=== PATIENT | female | born 1990 | race Caucasian/White ===

== ENCOUNTER 2016-05-23 13:36 | Emergency (ER) | payer OTHER ==
[~2016-05-23] VITALS: Wt 45.5 kg
[2016-05-23 14:21] LABS: ADD SCAN DIFF NO
[2016-05-23 14:24] LABS: ADD UMIC YES; URINE BILIRUBIN (Dip) NEGATIVE (NEGATIVE); URINE BLOOD (Dip) TRACE (NEGATIVE); URINE COLOR LT. YELLOW (YELLOW); URINE GLUCOSE (Dip) NEGATIVE (NEGATIVE); URINE KETONES (Dip) NEGATIVE (NEGATIVE); URINE LEUKOCYTE ESTERASE (Dip) NEGATIVE (NEGATIVE); URINE NITRITE (Dip) NEGATIVE (NEGATIVE); URINE TOTAL PROTEIN (Dip) NEGATIVE (NEGATIVE); URINE UROBILINOGEN (Dip) 0.2 E.U./dL (0.1-1.0)
--- NOTE | 2016-05-23 14:43 | RADRPT ---
PROCEDURE: US Pelvis. CLINICAL INDICATION: vaginal bleeding TECHNIQUE: Multiple sonographic images of the pelvis were obtained utilizing a transabdominal tech nique. The images were reviewed on a PACS workstation. COMPARISON: None. FINDINGS: The uterus is normal in size and demonstrates a normal appearance of the myometrium. The endometria l stripe is homogeneous in appearance and has the thickness of 5 mm. No intrauterine gestation is noted. The ovaries are normal in size and echogenicity. Normal Doppler flow is identified in both ovaries. The right ovary measures 4.0 x 3.0 x 2.4 cm. There is a 1.9 cm simple cyst in the right ovary. The left ovary measures 3.3 x 2.1 x 2.0 cm. No free fluid is present within the pelvis.. RPTAT: AA IMPRESSION: No intrauterine gestation visualized. Small simple cyst in the right ovary. Differential diagnosis includes early , missed or ectopic . Follow-up ultrasound and HCG levels is recommended. .Rick Bernal MD, MD Date Time Electronically viewed and signed by .Rick Bernal MD, MD on 05/23/2016 14:43 .S/
[2016-05-23 14:55] LABS: SQUAMOUS EPITHELIAL CELL,UR FEW; URINE RBCS 0-2 /HPF (0)
[2016-05-23 15:35] LABS: BASOPHILS % 0.3 % (0.0-2.0); EOSINOPHILS % 0.5 % (0.0-7.0); HEMOGLOBIN 9.7 g/dl (12.0-16.0); LYMPHOCYTES # 1.6 10^3/ul (0.8-2.9); LYMPHOCYTES % 26.9 % (15.0-51.0); MEAN CORPUSCULAR HEMOGLOBIN 23.1 pg (29.0-33.0); MEAN CORPUSCULAR HGB CONC 30.3 g/dl (32.0-37.0); MEAN CORPUSCULAR VOLUME 76.2 fl (82.0-101.0); MEAN PLATELET VOLUME 11.1 fl (7.4-10.4); MONOCYTE # 0.7 10^3/ul (0.3-0.9); NEUTROPHIL # 3.5 10^3/ul (1.6-7.5); NEUTROPHILS % 60.1 % (39.0-77.0); PLATELET COUNT 248 10^3/UL (140-415); RED CELL DISTRIBUTION WIDTH 16.5 % (11.5-14.5); WHITE BLOOD COUNT 5.8 10^3/ul (4.8-10.8)
[2016-05-23] MEDS ORDERED: FER325 PO (15:43)
--- NOTE | 2016-05-23 16:02 | ERD ---
ER Documentation Chief Complaint Date/Time DATE: 05/23/16 TIME: 15:47 Chief Complaint "I think I had a miscarriage", brought possible poc HPI This is a 25-year-old female who presents the emergency for a vaginal bleed and possible miscarriage. Patient is with on all deliveries. Last menstrual period was on April 08. Patient states that she noticed blood when wiping herself upon urination. She used a tampon yesterday and when she took it out this morning, a vaginal tissue came out with it. Denies any recent history of fever, abdominal pain, nausea, vomiting, diarrhea or dysuria. Patient does not take any medications. Denies smoking or alcohol use. ROS All systems reviewed and are negative except as per history of present illness. Medications Home Meds Active Scripts Ferrous Sulfate* (Ferrous Sulfate*) 325 Mg Tabec, 325 MG PO DAILY for 30 Days, TAB Prov:FROREST MUNOZ 05/23/16 PMhx/Soc Medical and Surgical Hx: pt denies Medical Hx, pt denies Surgical Hx Hx Alcohol Use: No Hx Substance Use: No Smoking Status: Never smoker Physical Exam Vitals Vital Signs Date Time Temp Pulse Resp B/P Pulse Ox O2 Delivery O2 Flow Rate FiO2 05/23/16 13:38 99.5 114 20 129/73 100 Physical Exam Physical Exam CONST: Well-developed, well-nourished, in no acute distress. Nontoxic in appearance. HEENT: Atraumatic. Normal conjunctiva. EOM intact. TM intact. External ear is normal. Clear oropharnyx without erythema. No uvular deviation. Moist mucous membranes. Supple neck. No meningismus. No submandibular induration. RESP: Clear to auscultation bilaterally. No wheezing. CARDIO: Regular rate and rhythm, no murmurs. ABD: Soft, non tender, non distended. Normal bowel sounds. No McBurney's point tenderness. No guarding or rigidity. No peritoneal signs. SKIN: No petechiae or rashes. BACK: No midline or flank tenderness. EXT: No cyanosis or edema. Distal pulses equal and bilateral. NEURO: Awake and alert, appropriate for age. 5/5 strength in all extremities. Normal speech. Steady gait. Result Diagram: 05/23/16 1409 Results 24 hrs Laboratory Tests Test 05/23/16 14:09 White Blood Count 5.810^3/ul Red Blood Count 4.2010^6/ul Hemoglobin 9.7g/dl Hematocrit 32.0% Mean Corpuscular Volume 76.2fl Mean Corpuscular Hemoglobin 23.1pg Mean Corpuscular Hemoglobin Concent 30.3g/dl Red Cell Distribution Width 16.5% Platelet Count 02278^3/UL Mean Platelet Volume 11.1fl Neutrophils % 60.1% Lymphocytes % 26.9% Monocytes % 12.0% Eosinophils % 0.5% Basophils % 0.3% Nucleated Red Blood Cells % 0.0/100WBC Neutrophils # 3.510^3/ul Lymphocytes # 1.610^3/ul Monocytes # 0.710^3/ul Eosinophils # 0.010^3/ul Basophils # 0.010^3/ul Nucleated Red Blood Cells # 0.010^3/ul Urine Color LT. YELLOW Urine Clarity CLEAR Urine pH 5.5 Urine Specific [place] >=1.030 Urine Ketones NEGATIVE Urine Nitrite NEGATIVE Urine Bilirubin NEGATIVE Urine Urobilinogen 0.2 E.U./dL Urine Leukocyte Esterase NEGATIVE Urine Microscopic RBC 0-2/HPF Urine Microscopic WBC 0-2/HPF Urine Squamous Epithelial Cells FEW Urine Hemoglobin TRACE Urine Glucose NEGATIVE% Urine Total Protein NEGATIVE Beta HCG, Quantitative 222.7mIU/ml PROCEDURE: US Pelvis. CLINICAL INDICATION: vaginal bleeding TECHNIQUE: Multiple sonographic images of the pelvis were obtained utilizing a transabdominal technique. The images were reviewed on a PACS workstation. COMPARISON: None. FINDINGS: The uterus is normal in size and demonstrates a normal appearance of the myometrium. The endometrial stripe is homogeneous in appearance and has the thickness of 5 mm. No intrauterine gestation is noted. The ovaries are normal in size and echogenicity. Normal Doppler flow is identified in both ovaries. The right ovary measures 4.0 x 3.0 x 2.4 cm. There is a 1.9 cm simple cyst in the right ovary. The left ovary measures 3.3 x 2.1 x 2.0 cm. No free fluid is present within the pelvis.. RPTAT: AA IMPRESSION: No intrauterine gestation visualized. Small simple cyst in the right ovary. Differential diagnosis includes early , missed or ectopic . Follow-up ultrasound and HCG levels is recommended. .Rick Bernal MD, MD Date Time Electronically viewed and signed by .Rick Bernal MD, on 05/23/2016 14: 43 Procedures/MDM EMERGENCY DEPARTMENT COURSE/MEDICAL DECISION MAKING This is a 25-year-old female who comes to the emergency room secondary to complaints of vaginal bleeding and possible spontaneous . Patient asymptomatic throughout the ED course. Vital signs are stable. OB ultrasound was done and was interpreted by a radiologist. There is no intrauterine gestation visualized. Beta hCG is 222.7, there is no baseline level and patient needs to come back in 2 days for a repeat blood draw. H&H is 9.7 and 32, I will prescribe 30 day course of ferrous sulfate for microcytic anemia. Patient also brought the tissue sample and was sent for biopsy. My primary diagnosis is vaginal bleeding. Secondary diagnosis is spontaneous Differential diagnoses considered but not limited to acute appendicitis, diverticulitis, pancreatitis, cholecystitis, gastritis, pyelonephritis, UTI, constipation, inflammatory bowel disease, ectopic , ovarian torsion. Pt is hemodynamically stable upon reassessment. There are no new complaints during the ED course. The patient was discharged for outpatient management with a prescription for ferrous sulfate. Patient was instructed to return to ED in 2 days for a repeat beta hCG lab draw. The patient was advised to followup with their PMD in 1-2 days and to return to the Emergency Department if there are any new or worsening symptoms. The patient understood and agreed with the diagnosis, treatment and plan. Patient is stable for discharge at this time. Departure Diagnosis: Primary Impression: Vaginal bleeding Condition: Stable Patient Instructions: Vaginal Bleed in Referrals: [facility] YOU HAVE RECEIVED A MEDICAL SCREENING EXAM AND THE RESULTS INDICATE THAT YOU DO NOT HAVE A CONDITION THAT REQUIRES URGENT TREATMENT IN THE EMERGENCY DEPARTMENT. FURTHER EVALUATION AND TREATMENT OF YOUR CONDITION CAN WAIT UNTIL YOU ARE SEEN IN YOUR DOCTORS OFFICE WITHIN THE NEXT 1-2 DAYS. IT IS YOUR RESPONSIBILITY TO MAKE AN APPOINTMENT FOR FOLOW-UP CARE. IF YOU HAVE A PRIMARY DOCTOR --you should call your primary doctor and schedule an appointment IF YOU DO NOT HAVE A PRIMARY DOCTOR YOU CAN CALL OUR PHYSICIAN REFERRAL HOTLINE AT IF YOU CAN NOT AFFORD TO SEE A PHYSICIAN YOU CAN CHOSE FROM THE FOLLOWING [facility] [address] [facility] [address] [facility] [address] [facility] [address] [facility] [address] [facility]. [facility]. [address] [facility]. [facility] YOU HAVE RECEIVED A MEDICAL SCREENING EXAM AND THE RESULTS INDICATE THAT YOU DO NOT HAVE A CONDITION THAT REQUIRES URGENT TREATMENT IN THE EMERGENCY DEPARTMENT. FURTHER EVALUATION AND TREATMENT OF YOUR CONDITION CAN WAIT UNTIL YOU ARE SEEN IN YOUR DOCTORS OFFICE WITHIN THE NEXT 1-2 DAYS. IT IS YOUR RESPONSIBILITY TO MAKE AN APPOINTMENT FOR FOLOW-UP CARE. IF YOU HAVE A PRIMARY DOCTOR --you should call your primary doctor and schedule and appointment IF YOU DO NOT HAVE A PRIMARY DOCTOR YOU CAN CALL OUR PHYSICIAN REFERRAL HOTLINE AT . IF YOU CAN NOT AFFORD TO SEE A PHYSICIAN YOU CAN CHOSE FROM THE FOLLOWING [facility] INSTITUTIONS: [facility] [address] [place] [address] [facility] [address] [place] [address] [facility] [address] [place] [address] Additional Instructions: Return to ED in 2 days for a Beta HCG blood draw Call your primary care doctor tomorrow for an appointment during the next 1-2 days. Return to the emergency department immediately should you have any new or worsening symptoms. Take all medications as directed. FORREST MUNOZ May 23, 2016 16:02
[2016-05-23 16:04] VITALS: BP 124/76; PULSE 92; RESP 18; TEMP 99.1
== END 2016-05-23 16:05 | disposition home or self-care (01) ==
LOC: FTE 13:36
DX: N93.9 Abnormal uterine and vaginal bleeding, unspecified (principal)
CPT/HCPCS: 36415; 76801; 81001; 81003; 84702; 85025; 86900; 86901; 88305

== ENCOUNTER 2016-05-25 14:06 | Emergency (ER) | payer OTHER ==
[~2016-05-25] VITALS: Wt 47.0 kg
[~2016-05-25 14:06] MED LIST: FER325 PO
[2016-05-25 15:27] LABS: ADD SCAN DIFF NO
[2016-05-25 15:36] LABS: BASOPHILS % 0.2 % (0.0-2.0); EOSINOPHILS % 0.7 % (0.0-7.0); HEMATOCRIT 33.1 % (37.0-47.0); HEMOGLOBIN 9.8 g/dl (12.0-16.0); LYMPHOCYTES # 1.5 10^3/ul (0.8-2.9); LYMPHOCYTES % 32.9 % (15.0-51.0); MEAN CORPUSCULAR HEMOGLOBIN 22.9 pg (29.0-33.0); MEAN CORPUSCULAR HGB CONC 29.6 g/dl (32.0-37.0); MEAN CORPUSCULAR VOLUME 77.3 fl (82.0-101.0); MEAN PLATELET VOLUME 10.4 fl (7.4-10.4); MONOCYTE # 0.6 10^3/ul (0.3-0.9); MONOCYTES % 13.1 % (0.0-11.0); NEUTROPHIL # 2.4 10^3/ul (1.6-7.5); NEUTROPHILS % 52.9 % (39.0-77.0); PLATELET COUNT 220 10^3/UL (140-415); RED BLOOD COUNT 4.28 10^6/ul (4.20-5.40); RED CELL DISTRIBUTION WIDTH 16.8 % (11.5-14.5); WHITE BLOOD COUNT 4.4 10^3/ul (4.8-10.8)
--- NOTE | 2016-05-25 16:16 | ERD ---
ER Documentation Chief Complaint Date/Time DATE: 05/25/16 TIME: 16:09 Chief Complaint HERE FOR 2 DAY RECHECK OF B HCG FOR VAG BLEED POSSIBLE MISCARRIAGE. HPI Is a 25-year-old female who presents to the emergency department today for a recheck of her hormone level. Patient was seen here a couple of days ago and was also told that her iron was low. States she has been taking her iron. States she does have some continued bleeding. States she has an appointment with her clinic next week. Denies any fevers or chills, dysuria, abdominal pain. ROS All systems reviewed and are negative except as per history of present illness. Medications Home Meds Active Scripts Acetaminophen* (Tylophen*) 500 Mg Capsule, 1 CAP PO Q6H Y for PAIN AND OR ELEVATED TEMP, #30 CAP Prov:EDELMIRA SAINZ PA-C 05/25/16 Ferrous Sulfate* (Ferrous Sulfate*) 325 Mg Tabec, 325 MG PO DAILY for 30 Days, TAB Prov:FORREST MUNOZ 05/23/16 PMhx/Soc Medical and Surgical Hx: pt denies Medical Hx, pt denies Surgical Hx Hx Alcohol Use: No Hx Substance Use: No Physical Exam Vitals Vital Signs Date Time Temp Pulse Resp B/P Pulse Ox O2 Delivery O2 Flow Rate FiO2 05/25/16 14:08 98.5 91 21 117/58 98 Physical Exam Const: No acute distress Head: Atraumatic Eyes: Normal Conjunctiva ENT: Normal External Ears, Nose and Mouth. Neck: Full range of motion..~ No meningismus. Resp: Clear to auscultation bilaterally Cardio: Regular rate and rhythm, no murmurs Abd: Soft, non tender, non distended. Normal bowel sounds. No right lower quadrant pain. No left lower quadrant pain. Skin: No petechiae or rashes Neur: Awake and alert Psych: Normal Mood and Affect Result Diagram: 05/25/16 1520 Results 24 hrs Laboratory Tests Test 05/25/16 15:20 White Blood Count 4.410^3/ul Red Blood Count 4.2810^6/ul Hemoglobin 9.8g/dl Hematocrit 33.1% Mean Corpuscular Volume 77.3fl Mean Corpuscular Hemoglobin 22.9pg Mean Corpuscular Hemoglobin Concent 29.6g/dl Red Cell Distribution Width 16.8% Platelet Count 03998^3/UL Mean Platelet Volume 10.4fl Neutrophils % 52.9% Lymphocytes % 32.9% Monocytes % 13.1% Eosinophils % 0.7% Basophils % 0.2% Nucleated Red Blood Cells % 0.0/100WBC Neutrophils # 2.410^3/ul Lymphocytes # 1.510^3/ul Monocytes # 0.610^3/ul Eosinophils # 0.010^3/ul Basophils # 0.010^3/ul Nucleated Red Blood Cells # 0.010^3/ul Beta HCG, Quantitative 47.1mIU/ml Procedures/MDM This a 25-year-old female who presents to the emergency department today for recheck of her repeat beta quant. Patient had a complete OB workup 2 days ago. Her laboratory work showed a hemoglobin of 9.7. Her beta quant was 222. Her ultrasound showed no IUP. It did show a simple cyst in the right ovary however she did have good Doppler flow to both ovaries. I discussed the patient with Dr. Keyes and the decision was made to repeat a beta quant and CBC Patient's hemoglobin today is 9.7. Patient was instructed to continue taking her iron. Patient's beta quant today was 47. Patient is afebrile and otherwise well-appearing. She really has no abdominal pain on physical exam of low suspicion for ectopic , delivering abscess , ovarian torsion. I do not feel that a repeat ultrasound was necessary at this time. Patient was instructed that she may continue to have vaginal bleeding. She was instructed to follow up in 48 hours or she may follow-up with her primary care physician. Departure Diagnosis: Primary Impression: Encounter for laboratory test Condition: EDELMIRA Coppola PA-C May 25, 2016 16:16
[2016-05-25] MEDS ORDERED: ACET500C5 PO (16:17)
== END 2016-05-25 16:57 | disposition home or self-care (01) ==
LOC: FTE 14:06
DX: Z32.02 Encounter for pregnancy test, result negative (principal)
CPT/HCPCS: 36415; 84702; 85025; Z7502; 99283